=== PATIENT | male | born 1990 | race Two or more races ===

== ENCOUNTER 2023-06-28 11:08 | Emergency (ER) | payer MEDICAID, OTHER ==
[~2023-06-28] VITALS: Ht 177.8 cm; Wt 108.5 kg
[2023-06-28 12:30] VITALS: BP 134/91; PULSE 94; RESP 16; TEMP 97.7; O2SAT 98
[2023-06-28] MEDS ORDERED: CEPH500C PO (12:44)
[2023-06-28] MEDS ORDERED: IBUP-1456 PO (12:44)
== END 2023-06-28 12:53 | disposition home or self-care (01) ==
LOC: ER 11:08
DX: S92.424A Nondisplaced fracture of distal phalanx of right great toe, initial encounter for closed fracture (principal); S91.131A Puncture wound without foreign body of right great toe without damage to nail, initial encounter; W22.8XXA Striking against or struck by other objects, initial encounter; Y93.89 Activity, other specified; Y92.89 Other specified places as the place of occurrence of the external cause; Y99.8 Other external cause status
CPT/HCPCS: 73630

== ENCOUNTER 2024-01-12 12:57 | Inpatient (IN) | payer MEDICAID ==
[~2024-01-12 12:57] MED LIST: CEPH500C PO; IBUP-1456 PO
--- NOTE | 2024-01-12 13:08 | ED.PDOC ---
HPI Comments A 33 YEAR OLD MALE PRESENTS TO THE ED WITH COMPLAINT OF CHEST PAIN. PATIENT STATES HE HAS BEEN EXPERIENCING LEFT-SIDED CHEST PAIN THAT STARTED TODAY WHEN HE WOKE UP. PATIENT DESCRIBES HIS PAIN A TIGHTNESS SENSATION AND STATES HE WAS MILD HAND SHAKINESS. PATIENT NOTES HE WAS ALSO HAD MILD NAUSEA WITH HIS PAIN. PATIENT REPORTS HE HAD THIS SAME PAIN A FEW MONTHS AGO AND NOTES HE WAS ADMITTED AT A DIFFERENT HOSPITAL DUE TO HIS BLOOD SUGAR BEING TOO HIGH FEELS LIKE IT MAY BE A HIGH ONCE AGAIN. PATIENT DENIES FEVER, CHILLS, SHORTNESS OF BREATH, ABDOMINAL PAIN, VOMITING, HEADACHE, OR OTHER COMPLAINTS. NO OTHER SYMPTOMS OR MODIFYING FACTORS AT THIS TIME. PATIENT IS ALERT, ORIENTED X 4, AND HAS STEADY GAIT. Chief Complaint: Chest Pain Time Seen by MD: 13:01 Reviewed Notes: Nurses Notes, Medications, Allergies Allergies: Coded Allergies: NO KNOWN ALLERGIES (Unverified , 01/12/24) Home Meds Active Scripts Cephalexin Monohydrate (Cephalexin) 500 Mg Cap, 1 CAP PO TID, #30 CAP Prov:MOOKIE DAN 06/28/23 Ibuprofen (Ibuprofen) 800 Mg Tab, 1 TAB PO TID, #30 TAB Prov:MOOKIE DAN 06/28/23 Information Source: Patient Mode of Arrival: Ambulatory Severity: Moderate Timing: Hours Duration: Since onset, Hours Prehospital treatment: None Location: Chest (L) Radiation: No Radiation Quality: Tightness Onset: At Rest Cardiac Risk Factors: None PE Risk Factors: None History of: None Associated Signs and Symptoms: None Past Medical History PAST MEDICAL HISTORY: DM Surgical History: Denies all surgeries Family History Family History: Reviewed,noncontributory to illness Social History Smoker: Non-Smoker Alcohol: Denies ETOH Use Drugs: Denies Drug Use Lives In: Home Constitutional: reports: others (ANXIOUS ); denies: chills, diaphoresis, fatigue, fever, malaise, sweats, weakness EENTM: denies: blurred vision, double vision, ear bleeding, ear discharge, ear drainage, ear pain, ear ringing, eye pain, eye redness, hearing loss, mouth pain, mouth swelling, nasal discharge, nose bleeding, nose congestion, nose pain, photophobia, tearing, throat pain, throat swelling, voice changes, others Respiratory: denies: cough, hemoptysis, orthopnea, SOB at rest, shortness of breath, SOB with excertion, stridor, wheezing, others Cardiovascular: reports: chest pain (LEFT-SIDED CHEST PAIN); denies: dizzy spells, diaphoresis, Dyspnea on exertion, edema, irregular heart beat, left arm pain, lightheadedness, palpitations, PND, syncope, others Gastrointestinal: reports: nausea; denies: abdomen distended, abdominal pain, blood streaked bowels, constipated, diarrhea, dysphagia, difficulty swallowing, hematemesis, melena, poor appetite, poor fluid intake, rectal bleeding, rectal pain, vomiting, others Genitourinary: denies: burning, dysuria, flank pain, frequency, hematuria, incontinence, penile discharge, penile sore, pain, testicle pain, testicle swelling, urgency, others Neurological: reports: tingling; denies: dizziness, fainting, headache, left sided numbness, left sided weakness, numbness, paresthesia, pre-existing def icit, right sided numbness, right sided weakness, seizure, speech problems, tremors, weakness, others Musculoskeletal: denies: back pain, gout, joint pain, joint swelling, muscle pain, muscle stiffness, neck pain, others Integumetry: denies: bruises, change in color, change in hair/nails, dryness, laceration, lesions, lumps, rash, wounds, others Allergic/Immunocompromised: denies: Difficulty Healing, Frequent Infections, Hives, Itching, others Hematologic/Lymphatic: denies: anemia, blood clots, easy bleeding, easy bruising, swollen glands, others Endocrine: denies: excessive hunger, excessive sweating, excessive thirst, excessive urination, flushing, intolerance to cold, intolerance to heat, unexplained weight gain, unexplained weight loss, others Psychiatric: reports: anxiety; denies: bipolar disorder, depression, hopeless, panic disorder, schizophrenia, sleepless, suicidal, others All Other Systems: Reviewed and Negative Physical Exam General Appearance: No Apparent Distress, Normal HEENT: Normal ENT Inspection, PERRL/EOMI, Pharynx Normal, TMs Normal Neck: Full Range of Motion, Non-Tender, Normal, Normal Inspection Respiratory: Lungs Clear, No Accessory Muscle Use, No Respiratory Distress, Normal Breath Sounds, Other (TENDERNESS ON LEFT SIDE CHEST WALL ) Cardiovascular: No Edema, No JVD, No Murmur, No Gallop, Normal Peripheral Pulses, Regular Rate/Rhythm Breast Exam: Deferred Gastrointestinal: No Organomegaly, Non Tender, No Pulsatile Mass, Normal Bowel Sounds, Soft Genitalia: Deferred Pelvic: Deferred Rectal: Deferred Extremities: No calf tenderness, Normal capillary refill, Normal inspection, Normal range of motion, Non-tender, No pedal edema Musculoskeletal : Apperance: Normal Neurologic: Alert, sports equipment repairer II-XII nml as Tested, No Motor Deficits, Normal Affect, Normal Mood, No Sensory Deficits Cerebellar Function: Normal Reflexes: Normal Skin: Dry, Normal Color, Warm Peripheral Pulses: 2+ carotid (R), 2+ carotid (L) Lymphatic: No Adenopathy EKG EKG : Pulse Rate (adult): 96 Neptune: Normal Cardiac Rhythm: NSR Block: None Hypertrophy: None ST: Normal Was a procedure done? Was a procedure done?: No CP Differential Dx Differential Diagnosis: Angina, Anxiety / Panic Attack Differential Diagnosis: N/A Differential Diagnosis: Angina, Chest Wall Pain, Costochondritis, Esophageal reflux/spasm, Myocardial Infarction, Pericarditis X-Ray, Labs, Meds, VS Vital Signs Date Time Temp Pulse Resp B/P (MAP) Pulse Ox O2 Delivery O2 Flow Rate FiO2 01/12/24 13:39 95 18 98 Room Air* 0 21 01/12/24 13:39 98.2 96 18 132/81 (98) 98 98.2 01/12/24 13:05 97.4 100 20 129/90 (103) 99 01/12/24 13:03 96 Lab Test 01/12/24 14:32 01/12/24 14:19 01/12/24 13:11 01/12/24 13:10 Range/Units POC Glucose 302 H 385 H 429 *H 70-106 mg/dl Troponin I High Sensitivity Pending Test 01/12/24 13:08 Range/Units White Blood Count 7.7 4.4-10.8 10^3/uL Red Blood Count 5.65 4.5-5.90 10^6/uL Hemoglobin 17.1 13.5-17.5 g/dL Hematocrit 49.0 41.0-53.0 % Mean Corpuscular Volume 86.8 80.0-100.0 fL Mean Corpuscular Hemoglobin 30.3 28.0-32.0 pg Mean Corpuscular Hemoglobin Concent 34.9 32.0-36.0 g/dL Red Cell Distribution Width 12.7 11.8-14.3 % Platelet Count 201 140-450 10^3/uL Mean Platelet Volume 9.0 6.9-10.8 fL Neutrophils (%) (Auto) 79.9 37.0-80.0 % Lymphocytes (%) (Auto) 12.5 10.0-50.0 % Monocytes (%) (Auto) 5.1 0.0-12.0 % Eosinophils (%) (Auto) 2.4 0.0-7.0 % Basophils (%) (Auto) 0.1 0.0-2.0 % Neutrophils # (Auto) 6.1 1.6-8.6 10 ^3/uL Lymphocytes # (Auto) 1.0 0.4-5.4 10 ^3/uL Monocytes # (Auto) 0.4 0-1.3 10 ^3/uL Eosinophils # (Auto) 0.2 0-0.8 10 ^3/uL Basophils # (Auto) 0 0-0.2 10 ^3/uL Nucleated Red Blood Cells 0.0 % Sodium Level 134 L 136-145 mmol/L Potassium Level 4.2 3.5-5.1 mmol/L Chloride Level 99 98-107 mmol/L Carbon Dioxide Level 25 20-31 mmol/L Anion Gap 10 5-15 Blood Urea Nitrogen 15 9-23 mg/dL Creatinine 1.00 0.700-1.30 mg/dL Glomerular Filtration Rate Calc 101 >90 mL/min BUN/Creatinine Ratio 15.0 10.0-20.0 Serum Glucose 407 *H 74-106 mg/dL Calcium Level 9.7 8.7-10.4 mg/dL Troponin I High Sensitivity < 3 L </=54 ng/L Current Medications Medications (Trade) Dose Ordered Sig/Rj Route Start Time Stop Time Status Last Admin Insulin Human Regular (InsuLIN R) 6 units ONCE ONCE IV 01/12/24 13:45 01/12/24 13:50 DC 01/12/24 13:58 Sodium Chloride 1,000 ml @ 1,000 mls/hr Q1H ONCE IV 01/12/24 13:45 01/12/24 14:44 DC 01/12/24 13:54 PATIENT: [facility] [place]: [id number]: [id number] : 1990 LOC: ER ROOM / BED: / AGE / SEX: 33 / M ADM STATUS: REG ER SERVICE 1302 ORDERING PHYSICIAN: MOOKIE DAN PROCEDURE(s): CXRP - CHEST PORTABLE REASON: CHEST PAIN ORDER NUMBER(s): [id number], ACCESSION NUMBER(s): [id number] CHEST RADIOGRAPH Indication: CHEST PAIN Technique: Single frontal view of the chest was obtained Comparison: None FINDINGS: Lines and Tubes: None Lungs: No focal consolidation. Bronchovascular crowding due to low lung volumes. Pleura: No effusion. No pneumothorax. Cardiomediastinal contours: Unremarkable Bones: No acute osseous abnormality. IMPRESSION: Bronchovascular crowding due to low lung volumes. Mild pulmonary vascular congestion can not be excluded. ATED BY: RASHMI MCINTOSH DO DICTATED DATE/TIME: 01/12/24 140 SIGNED BY: RASHMI MCINTOSH DO SIGNED DATE/TIME: 01/12/24 140 CC: X-Ray, Labs, Meds, VS Comment EXTERNAL NOTES: NONE LABS ORDERED: CBC, CMP, TROPONIN X2, UA REVIEWED AND INTERPRETED RESULTS: PENDING IMAGING ORDERED: XR CHEST: [PENDING] INDEPENDENT HISTORIANS: NONE PATIENT'S CASE WILL BE SIGNED OUT TO DR. MONTANO DUE TO A NEED FOR A HIGHER LEVEL OF CARE. Time of 1ST Reevaluation: 14:00 Reevaluation 1ST: Unchanged Time of 2ND Reevaluation: 14:44 Reevaluation 2ND: Unchanged Patient Education/Counseling: Diagnosis, Treatment, Prognosis Family Education/Counseling: Diagnosis, Treatment Assigned to Dr. MONTANO Change of Shift?: No Additional Information DUE TO A NEED FOR A HIGHER LEVEL OF CARE. i assumed care of this pt at 1pm. i reviewed and examined the pt and agree with the note from GRIFFIN Dan. pt reports that he takes metformin, but has not been able to take it since he has abdominal pain when he tries to eat. he does take motrin on a regular basis, but denies hematemesis. pt may have PUD from NSAID use, or gastroparesis, causing him to be intolerant to oral intake. as a result, he was unable to take him medications. pt's BS is now uncontrolled. he is not in DKA, but is likely to deteriorate without medications or oral intake. pt will be admitted for uncontrolled diabetes due to oral intake intolerance, and dyspepsia i reviewed pt's labs( cbc, chem, trop), and communicated with medical personnel and consults about his care pt also reported chest pain which will be worked up Departure 1 Departure Time of Disposition: 14:00 Impression: Primary Impression: Acute chest pain Additional Impressions: Uncontrolled diabetes mellitus Qualified Codes: E11.65 - Type 2 diabetes mellitus with hyperglycemia Dyspepsia Food intolerance in adult Anorexia Disposition: ADMITTED INPATIENT Admit to: Tele Condition: Stable Critical Care Note Critical Care Time?: Yes (55 min-critical care time only) Critical care comment: due to the likelihood of patients condition suddenly deteriorating, the care requires my highest level of attention, readiness to intervene. my critical care include assessing and reassessing of patient's condition, response to treatments, ordering the appropriate tests, reviewing the results, ordering of treatments, discussing the care with medical personnel and consultants, and formulating a treatment plan, as well a reviewing various medical records. this include at least 50% face-face interaction, and does not include any procedures Stability Stability form required: No Heart Score Heart Score: Heart Score Response (Comments) Value History Slightly Suspicious 0 EKG Normal 0 Age <45 0 Risk Factors 1 or 2 risk factors 1 Troponin Normal limit 0 Total 1 I personally scribed for MOOKIE DAN ([email or web address]) on 01/12/24 at 14:02. Electronically submitted by Manjit Spann ([email or web address]). MOOKIE DAN Jan 12, 2024 13:08 ROLF MONTANO MD Jan 12, 2024 14:52
[2024-01-12 13:39] VITALS: PULSE 95; RESP 18; O2SAT 98
[2024-01-12] MEDS: SODIUM CHLORIDE 0.9% 1,000 ML IV ONE (13:54)
[2024-01-12 13:56] LABS: Basophils # (auto) 0 10 ^3/uL (0-0.2); Basophils % (auto) 0.1 % (0.0-2.0); Eosinophils # (auto) 0.2 10 ^3/uL (0-0.8); Eosinophils % (auto) 2.4 % (0.0-7.0); Hemoglobin 17.1 g/dL (13.5-17.5); Lymphocytes % (auto) 12.5 % (10.0-50.0); Mean Corpuscular Hemoglobin 30.3 pg (28.0-32.0); Mean Corpuscular Hgb Conc. 34.9 g/dL (32.0-36.0); Mean Corpuscular Volume 86.8 fL (80.0-100.0); Monocytes # (auto) 0.4 10 ^3/uL (0-1.3); Monocytes % (auto) 5.1 % (0.0-12.0); Neutrophils # (auto) 6.1 10 ^3/uL (1.6-8.6); Neutrophils % (auto) 79.9 % (37.0-80.0); Platelet Count (auto) 201 10^3/uL (140-450); Red Blood Cells 5.65 10^6/uL (4.5-5.90); Red Cell Distribution Width 12.7 % (11.8-14.3); White Blood Cell 7.7 10^3/uL (4.4-10.8)
[2024-01-12] MEDS: InsuLIN REG 1unit/0.01ml Soln (100units/ml) IV ONE (13:58)
[2024-01-12 14:00] LABS: Anion Gap 10 (5-15); Carbon Dioxide 25 mmol/L (20-31); Chloride 99 mmol/L (98-107); Potassium 4.2 mmol/L (3.5-5.1)
[2024-01-12 14:01] LABS: Calcium 9.7 mg/dL (8.7-10.4); Sodium 134 mmol/L (136-145)
[2024-01-12 14:07] LABS: Blood Urea Nitrogen 15 mg/dL (9-23)
[2024-01-12 14:10] LABS: Glucose 407 mg/dL (74-106)
--- NOTE | 2024-01-12 14:12 | DVH ---
CHEST RADIOGRAPH Indication: CHEST PAIN Technique: Single frontal view of the chest was obtained Comparison: None FINDINGS: Lines and Tubes: None Lungs: No focal consolidation. Bronchovascular crowding due to low lung volumes. Pleura: No effusion. No pneumothorax. Cardiomediastinal contours: Unremarkable Bones: No acute osseous abnormality. IMPRESSION: Bronchovascular crowding due to low lung volumes. Mild pulmonary vascular congestion can not be excl uded.
[2024-01-12 15:18] LABS: Urine Bacteria FEW /hpf (None Seen); Urine Blood Negative /uL (Negative); Urine Clarity Turbid (Clear); Urine Color Light-Yellow (Yellow); Urine Hyaline Cast FEW /lpf (0 - 2); Urine Mucus FEW (None Seen); Urine Protein, UAD Negative (Negative); Urine Specific Gravity 1.048 (1.001-1.035); Urine Urobilinogen Normal (Negative); Urine WBC 1 /hpf (0 - 3)
[2024-01-12] MEDS: SODIUM CHLORIDE 0.9% 1,000 ML IV SCH (15:30)
[2024-01-12] MEDS ORDERED: LORazepam 0.5 MG TAB PO PRN (15:30)
[2024-01-12] MEDS ORDERED: DEXTROSE (50%) 50ML SYRG IV PRN (15:30)
[2024-01-12] MEDS ORDERED: MAALOX PLUS or MAALOX 30 ML PO PRN (15:30)
[2024-01-12] MEDS ORDERED: MORPHINE SULFATE INJ 2 MG/ml SYRG IV PRN (15:30)
[2024-01-12] MEDS ORDERED: ZOLPIDEM TARTRATE 5 MG TAB PO PRN (15:30)
[2024-01-12] MEDS ORDERED: NITROGLYCERIN 0.4 MG SL TAB SL PRN (15:30)
[2024-01-12] MEDS ORDERED: ONDANSETRON HCL 4 MG/2 ML VIAL IV PRN (15:30)
[2024-01-12] MEDS ORDERED: ACETAMINOPHEN 325 MG TAB PO PRN (15:30)
--- NOTE | 2024-01-12 15:38 | DVHHP2 ---
History of Present Illness Reason for Visit: chest pain History of Present Illness 33-year-old morbidly obese patient with a past medical history of diabetes comes into the ED for evaluation of stated chest pain that was severe enough to wake the patient from his sleep patient describes having symptoms of jitteriness weakness shakiness tightness sensation patient was also noted to have severe hyperglycemia and states that he has had symptoms similar to this in the past and was admitted to a different hospital in that that point in time it was due to his blood sugar being severely high patient is diabetic possibly noncompliant to medications that this point in time is also hyperglycemic patient was recomm ended from the ED for further evaluation and management Endocrine: Diabetes Review of Systems Constitutional: Yes: Weakness; No: Fever, Chills, Sweats, Malaise, Other Eyes: No: Pain, Vision change, Conjunctivae inflammation, Eyelid inflammation, Other, Redness ENT: No: Ear pain, Ear discharge, Nose pain, Nose discharge, Nose congestion, Mouth pain, Mouth swelling, Throat pain, Throat swelling, Other Respiratory: No: Cough, Dry, Shortness of breath, SOB with excertion, Wheezing, Hemoptysis, Pleuritic Pain, Sputum, Wheezing, Other Cardiovascular: No: Chest Pain, Palpitations, Orthopnea, Paroxysmal Noc. Dyspnea, Edema, Lt Headedness, Other Gastrointestinal: No: Nausea, Vomiting, Abdominal Pain, Diarrhea, Constipation, Melena, Hematochezia, Other Genitourinary: Dysuria, Frequency; No Incontinence, No Hematuria, No Retention, No Other Musculoskeletal: No: other, neck pain, shoulder pain, arm pain, back pain, hand pain, leg pain, foot pain Skin: No: Rash, Lesions, Jaundice, Bruising, Other Neurological: Weakness; No: Numbness, Incoordination, Change in speech, Confusion, Seizures, Other Allergies: Coded Allergies: NO KNOWN ALLERGIES (Unverified , 01/12/24) Exam Vital Signs Vital Signs Date Time Temp Pulse Resp B/P (MAP) Pulse Ox O2 Delivery O2 Flow Rate FiO2 01/12/24 13:39 95 18 98 Room Air* 0 21 01/12/24 13:39 98.2 132/81 (98) 98.2 General Appearance: Alert, Oriented X3, mild distress HEENT: Atraumatic, PERRLA Respiratory: Clear to auscultation, Normal air movement Cardiovascular: Regular rate, Normal S1, Normal S2 Abdominal: Normal bowel sounds, Soft, No tenderness Extremities: No clubbing, No cyanosis Skin: No rashes, No breakdown Neuro: Normal gait, Normal speech Psych/Mental Status: Mood NL Labs/Xrays Labs Test 01/12/24 14:59 01/12/24 14:32 01/12/24 14:19 01/12/24 13:08 Range/Units Urine Color Light-yellow Yellow Urine Clarity Turbid H Clear Urine pH 5.0 5.0-9.0 Urine Specific [place] 1.048 H 1.001-1.035 Urine Protein Negative Negative Urine Ketones Trace Negative Urine Blood Negative Negative /uL Urine Nitrite Negative Negative Urine Bilirubin Negative Negative Urine Urobilinogen Normal Negative mg/dL Urine Leukocyte Esterase Negative Negative /uL Urine RBC <1 0 - 3 /hpf Urine WBC 1 0 - 3 /hpf Urine Squamous Epithelial Cells Few <5 /hpf Urine Bacteria Few H None Seen /hpf Urine Hyaline Casts Few 0 - 2 /lpf Urine Mucus Few None Seen Urine Glucose 4+ H Normal mg/dL POC Glucose 302 H 70-106 mg/dl Troponin I High Sensitivity < 3 L </=54 ng/L White Blood Count 7.7 4.4-10.8 10^3/uL Red Blood Count 5.65 4.5-5.90 10^6/uL Hemoglobin 17.1 13.5-17.5 g/dL Hematocrit 49.0 41.0-53.0 % Mean Corpuscular Volume 86.8 80.0-100.0 fL Mean Corpuscular Hemoglobin 30.3 28.0-32.0 pg Mean Corpuscular Hemoglobin Concent 34.9 32.0-36.0 g/dL Red Cell Distribution Width 12.7 11.8-14.3 % Platelet Count 201 140-450 10^3/uL Mean Platelet Volume 9.0 6.9-10.8 fL Neutrophils (%) (Auto) 79.9 37.0-80.0 % Lymphocytes (%) (Auto) 12.5 10.0-50.0 % Monocytes (%) (Auto) 5.1 0.0-12.0 % Eosinophils (%) (Auto) 2.4 0.0-7.0 % Basophils (%) (Auto) 0.1 0.0-2.0 % Neutrophils # (Auto) 6.1 1.6-8.6 10 ^3/uL Lymphocytes # (Auto) 1.0 0.4-5.4 10 ^3/uL Monocytes # (Auto) 0.4 0-1.3 10 ^3/uL Eosinophils # (Auto) 0.2 0-0.8 10 ^3/uL Basophils # (Auto) 0 0-0.2 10 ^3/uL Nucleated Red Blood Cells 0.0 % Sodium Level 134 L 136-145 mmol/L Potassium Level 4.2 3.5-5.1 mmol/L Chloride Level 99 98-107 mmol/L Carbon Dioxide Level 25 20-31 mmol/L Anion Gap 10 5-15 Blood Urea Nitrogen 15 9-23 mg/dL Creatinine 1.00 0.700-1.30 mg/dL Glomerular Filtration Rate Calc 101 >90 mL/min BUN/Creatinine Ratio 15.0 10.0-20.0 Serum Glucose 407 *H 74-106 mg/dL Calcium Level 9.7 8.7-10.4 mg/dL Assessment/Plan Assessment/Plan Admit to [facility] Chest pain rule out ACS Chest pain protocol IV hydration Continue with the management of chest pain protocol Uncontrolled diabetes with severe hyperglycemia Glucose greater than 400 Insulin sliding scale aggressive Insulin required due now Possible signs of pulmonary congestion also noted on patient's chest x-ray UTI IV hydration IV antibiotics ceftriaxone daily Plan discussed with: Patient My Orders Orders - NORRIS HOUSER MD Procedure Category Date Status Time Insulin 70/30 (Human) PHA 01/12/24 Verified (Humulin 70/30) 22:00 Insulin Lispro PHA 01/12/24 Verified (Human) (Humalog) 15:30 Glucose Blood PHA 01/12/24 Verified (Accu-Chek Comfort 16:00 Agressive Insulin Ss PHA 01/12/24 Verified 16:00 Dextrose 50% Syringe PHA 01/12/24 Verified 15:30 Admit ADMIT 01/12/24 Verified 15:29 Code Status CODE 01/12/24 Verified 15:29 Cardiac DIET 01/12/24 Verified Diet-2gna,Lofat,Lochol Dinner 0.9%Ns 1000 Ml PHA 01/12/24 Verified 15:30 Aspirin Tablet PHA 01/13/24 Verified 10:00 Clopidogrel Bisulfate PHA 01/13/24 Verified (Plavix) 10:00 Lipitor 40mg Hs PHA 01/12/24 Verified Hi-Intensity 22:00 Metoprolol Tartrate PHA 01/12/24 Verified Tablet (Lopressor Ta 22:00 Acetaminophen Tablet PHA 01/12/24 Verified (Tylenol Tablet) 15:30 Zolpidem Tartrate PHA 01/12/24 Verified (Ambien) 15:30 Lorazepam Tablet PHA 01/12/24 Verified (Ativan Tablet) 15:30 Docusate Sodium PHA 01/13/24 Verified Capsule (Colace 10:00 Complete Blood Count LAB 01/13/24 Verified 04:00 Basic Metabolic Panel LAB 01/13/24 Verified 04:00 Ondansetron Hcl PHA 01/12/24 Verified (Zofran) 15:30 Electrocardigram EKG 01/12/24 Verified 15:29 Alum & Mag PHA 01/12/24 Verified Hydrox-Simethicone 15:30 Troponin-I Hs LAB 01/12/24 Verified 15:29 Lisinopril Tablet PHA 01/13/24 Verified (Zestril Tablet) 10:00 Cardiac MARIELA 01/12/24 Verified Rehabilitation - Outpa Stat Ekg For Chest MARIELA 01/12/24 Verified Pain 15:29 Notify Md Of Changes MARIELA 01/12/24 Verified From Base 15:29 Rhythm Strips Once MARIELA 01/12/24 Verified Every Shift 15:29 Oxygen By Nasal RT 01/12/24 Verified Cannula 15:29 Nitroglycerin PHA 01/12/24 Verified Sublingual (Ntrostat 15:30 Morphine Sulfate PHA 01/12/24 Verified Injection 15:30 Emergency Dysrhythmia MARIELA 01/12/24 Verified Protocol 15:29 Ceftriaxone Ivpb PHA 01/13/24 Verified Rocephin 10:00 Problem List: (1) Acute chest pain (2) Uncontrolled diabetes mellitus (3) Anorexia (4) Food intolerance in adult Date of Service: Jan 12, 2024 Billing Provider: NORRIS HOUSER MD Common Visit Codes: [id number] INP/OBS CARE (HIGH) NORRIS HOUSER MD Jan 12, 2024 15:38
[2024-01-12] MEDS: cefTRIAXone 1GM/50ML D5W 50 ML IV SCH (17:04)
[2024-01-12] MEDS: InsuLIN REG 1unit/0.01ml Soln (100units/ml) SC SCH (17:45)
[2024-01-12] MEDS: ACCU-CHEK COMFORT CURVE STRIP VI SCH (17:46)
[2024-01-12] MEDS: INSULIN LISPRO (HUMAN) 100 UNITS/ML ML SC ONE (17:47)
[2024-01-12 18:34] VITALS: BP 111/73; PULSE 88; RESP 17; TEMP 98.7; O2SAT 95
[2024-01-12 20:00] VITALS: PULSE 90; RESP 18; O2SAT 95
[2024-01-12] MEDS: METOPROLOL TARTRATE 25 MG TAB PO SCH (22:00)
[2024-01-12] MEDS: ATORVASTATIN 20 MG TAB PO SCH (22:10)
[2024-01-12] MEDS: INSULIN 70/30 1unit/0.01ml Susp (100units/ml) SC SCH (23:00)
[2024-01-13 00:20] VITALS: BP 114/75; PULSE 87; RESP 18; TEMP 97.3; O2SAT 95
[2024-01-13 05:50] VITALS: BP 106/68; PULSE 71; RESP 18; TEMP 98; O2SAT 96
[2024-01-13 07:37] VITALS: RESP 18
[2024-01-13 07:37] LABS: Basophils # (auto) 0 10 ^3/uL (0-0.2); Basophils % (auto) 0.4 % (0.0-2.0); Eosinophils # (auto) 0.1 10 ^3/uL (0-0.8); Eosinophils % (auto) 2.7 % (0.0-7.0); Hematocrit 44.7 % (41.0-53.0); Hemoglobin 15.8 g/dL (13.5-17.5); Lymphocytes # (auto) 1.4 10 ^3/uL (0.4-5.4); Lymphocytes % (auto) 27.5 % (10.0-50.0); Mean Corpuscular Hemoglobin 30.5 pg (28.0-32.0); Mean Corpuscular Hgb Conc. 35.4 g/dL (32.0-36.0); Mean Corpuscular Volume 86.1 fL (80.0-100.0); Monocytes # (auto) 0.5 10 ^3/uL (0-1.3); Neutrophils # (auto) 3.2 10 ^3/uL (1.6-8.6); Neutrophils % (auto) 60.4 % (37.0-80.0); Nucleated Red Blood Cells % 0.1 %; Platelet Count (auto) 181 10^3/uL (140-450); Red Blood Cells 5.19 10^6/uL (4.5-5.90); White Blood Cell 5.2 10^3/uL (4.4-10.8)
[2024-01-13 07:48] LABS: Anion Gap 8 (5-15); Carbon Dioxide 24 mmol/L (20-31); Chloride 106 mmol/L (98-107); Sodium 138 mmol/L (136-145)
[2024-01-13 07:49] LABS: Calcium 8.9 mg/dL (8.7-10.4)
[2024-01-13 07:54] LABS: BUN/Creatinine Ratio 14.3 (10.0-20.0)
[2024-01-13 07:58] LABS: Potassium 3.5 mmol/L (3.5-5.1)
[2024-01-13 07:59] LABS: Blood Urea Nitrogen 8 mg/dL (9-23); Glucose 122 mg/dL (74-106)
[2024-01-13] MEDS: CLOPIDOGREL BISULFATE 75 MG TAB PO SCH (10:27)
[2024-01-13] MEDS: DOCUSATE SOD 100 MG CAP PO SCH (10:27)
[2024-01-13] MEDS: ASPirin 81 mg TAB PO SCH (10:28)
[2024-01-13] MEDS: LISINOPRIL 5 MG TAB PO SCH (10:37)
--- NOTE | 2024-01-13 15:31 | DVHPN2 ---
Subjective No more chest pains. No urine complaints. No nausea no vomiting no diarrhea. Reviewed: Care Plan, H&P, Labs, Medications, Previous Orders, Radiology, Other Changes from previous H/P or p: No Changes Objective Vitals Vital Signs Date Time Temp Pulse Resp B/P (MAP) Pulse Ox O2 Delivery O2 Flow Rate FiO2 01/13/24 11:30 74 101/63 01/13/24 07:37 18 Room Air* 0 21 01/13/24 05:50 98.0 96 98.0 General Appearance: Alert, Oriented X3, Cooperative, No acute distress HEENT: Atraumatic, PERRLA Lungs: Clear to auscultation Cardiovascular: Regular rate, Normal S1, Normal S2 Abdomen: Normal bowel sounds, Soft, No tenderness Extremities: No edema Medications Current Medications Medications Dose Ordered Sig/Rj Route Start Time Stop Time Status Last Admin Dose Admin Insulin Human Isoph/Insulin Regular 30 units BID SC 01/12/24 22:00 01/13/24 10:43 30 UNITS Diagnostic Test (Pha) 1 strip IQ4HR 01/12/24 16:00 01/13/24 12:12 1 STRIP Insulin Human Regular IQ4HR SC 01/12/24 16:00 01/13/24 12:15 4 UNITS Dextrose 50 ml UD PRN IV 01/12/24 15:30 Sodium Chloride 1,000 ml @ 200 mls/hr Q5H IV 01/12/24 15:30 01/13/24 12:09 200 MLS/HR Aspirin 81 mg DAILY PO 01/13/24 10:00 01/13/24 10:28 81 MG Atorvastatin Calcium 40 mg HS PO 01/12/24 22:00 01/12/24 22:10 40 MG Metoprolol Tartrate 12.5 mg Q12HR PO 01/12/24 22:00 01/13/24 10:36 12.5 MG Acetaminophen 650 mg Q6HP PRN PO 01/12/24 15:30 Zolpidem Tartrate 5 mg QHSP PRN PO 01/12/24 15:30 Lorazepam 0.5 mg Q6HP PRN PO 01/12/24 15:30 Docusate Sodium 100 mg DAILY PO 01/13/24 10:00 01/13/24 10:27 100 MG Ondansetron HCl 4 mg Q4HP PRN IV 01/12/24 15:30 Al Hydrox/Mg Hydrox/Simethicone 30 ml Q6HPRN PRN PO 01/12/24 15:30 Lisinopril 10 mg DAILY PO 01/13/24 10:00 01/13/24 10:37 10 MG Nitroglycerin 0.4 mg Q5MINP PRN SL 01/12/24 15:30 Morphine Sulfate 2 mg Q30M PRN IV 01/12/24 15:30 Ceftriaxone Sodium 50 ml @ 100 mls/hr DAILY IV 01/12/24 17:04 01/13/24 11:22 100 MLS/HR Laboratory Results Laboratory Tests 01/13/24 07:18 Chemistry Test 01/13/24 07:18 Calcium Level 8.9 mg/dL (8.7-10.4) Urinalysis Test 01/12/24 14:59 Urine Color Light-yellow (Yellow) Urine Clarity Turbid (Clear) H Urine pH 5.0 (5.0-9.0) Urine Specific [place] 1.048 (1.001-1.035) Urine Protein Negative (Negative) Urine Ketones Trace (Negative) Urine Blood Negative /uL (Negative) Urine Nitrite Negative (Negative) Urine Bilirubin Negative (Negative) Urine Urobilinogen Normal mg/dL (Negative) Urine Leukocyte Esterase Negative /uL (Negative) Urine RBC <1 /hpf (0 - 3) Urine WBC 1 /hpf (0 - 3) Urine Squamous Epithelial Cells Few /hpf (<5) Urine Bacteria Few /hpf (None Seen) H Urine Hyaline Casts Few /lpf (0 - 2) Urine Mucus Few (None Seen) Urine Glucose 4+ mg/dL (Normal) H Assessment/Plan Assessment/Plan Chest pain/pressure-like/of unclear etiology Hyperglycemia/uncontrolled diabetes Questionable UTI Obesity Plan: Check D-dimer. Cardiology consultation. A1c. Drug screen. Further plan per orders Plan discussed with: Patient My Orders Orders - QUANG YI MD Procedure Category Date Status Time D-Dimer LAB 01/13/24 Logged 15:17 Drug Screen LAB 01/13/24 Logged 15:17 * Cardiology Consult CONS 01/13/24 Transmitted 15:17 Hemoglobin A1c LAB 01/13/24 Logged 15:17 Date of Service: Jan 13, 2024 Billing Provider: QUANG YI MD Common Visit Codes: [id number] INP/OBS CARE(HIGH) QUANG YI MD Jan 13, 2024 15:31
--- NOTE | 2024-01-13 17:09 | DVHINCON2 ---
Date Seen: Jan 13, 2024 Referring Physician MD Yvrose Reason for Consultation Chest pain History of Present Illness This is a 33-year-old man who presented to the emergency room with a chief complaint of chest pain since 0500 the day of admission. Describes his chest pain as left-sided, nonradiating, non provoked, and pressure-like. Denies shortness of breath, palpitations, dizziness, diaphoresis, or syncopal events. 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 The patient also reports contact to the chest wall area by his daughter's feet when playing and who is 2 y.o. He underwent a 12 lead electrocardiogram revealing a sinus rhythm. Serial troponin levels are negative. Significant medical history includes [id number] diabetes mellitus, cataracts status post left cataract surgery, and obesity. Past Medical History Past medical history reviewed. No other significant than mentioned above. Past Surgical History Left cataract surgery Family History Family history reviewed. Not significant for cardiovascular disease. Social History Denies the use of illicit drugs or tobacco use. Admits to occasional alcohol use. Allergies: Coded Allergies: NO KNOWN ALLERGIES (Unverified , 01/12/24) Home Meds Active Scripts Cephalexin Monohydrate (Cephalexin) 500 Mg Cap, 1 CAP PO TID, #30 CAP Prov:MOOKIE DAN 06/28/23 Ibuprofen (Ibuprofen) 800 Mg Tab, 1 TAB PO TID, #30 TAB Prov:MOOKIE DAN 06/28/23 Home Meds Home medications reviewed. Current Medications Current Medications Medications (Trade) Dose Ordered Sig/Rj Route PRN Reason Start Time Stop Time Status Last Admin Insulin Human Isoph/Insulin Regular (HumuLIN 70/30) 30 units BID SC 01/12/24 22:00 01/13/24 10:43 Aspirin 81 mg DAILY PO 01/13/24 10:00 01/13/24 10:28 Clopidogrel Bisulfate (Plavix) 75 mg DAILY PO 01/13/24 10:00 01/13/24 15:19 DC 01/13/24 10:27 Atorvastatin Calcium (Lipitor) 40 mg HS PO 01/12/24 22:00 01/12/24 22:10 Metoprolol Tartrate (Lopressor Tablet) 12.5 mg Q12HR PO 01/12/24 22:00 01/13/24 10:36 Docusate Sodium (Colace Capsule) 100 mg DAILY PO 01/13/24 10:00 01/13/24 10:27 Lisinopril (Zestril Tablet) 10 mg DAILY PO 01/13/24 10:00 01/13/24 10:37 Ceftriaxone Sodium 50 ml @ 100 mls/hr DAILY IV 01/12/24 17:04 01/13/24 11:22 Review of Systems Constitutional: No symptom reported Ears, Nose, & Throat: No symptom reported Eyes: No symptom reported Neurological: No symptoms reported Pulmonary/Respiratory: No symptom reported Cardiovascular: Chest pain Gastrointestinal: No symptom reported Genitourinary: No symptom reported Musculoskeletal: No symptom reported Skin: No symptom reported Psychiatric: No symptom reported Endocrine: No symptom reported Hemotologic/Lymphatic: No symptom reported Vital Signs Vital Signs Date Time Temp Pulse Resp B/P (MAP) Pulse Ox O2 Delivery O2 Flow Rate FiO2 01/13/24 11:30 74 101/63 01/13/24 07:37 18 Room Air* 0 21 01/13/24 05:50 98.0 96 98.0 Physical Exam General Appearance: Cooperative. Well developed. Obese. In no acute distress Head Exam: Normal inspection Neck Exam: Normal inspection. Non-tender. Normal alignment Pulmonary/Respiratory: Chest non-tender. Clear bilateral breath sounds Cardiovascular/Chest: Regular rate and rhythm. S1, S2. Sinus rhythm. No murmurs. No JVD. Peripheral Pulses: 2+ Radial (R). 2+ Radial (L). 2+ Pedal (R). 2+ Pedal (L) Abdominal Exam: Normal bowel sounds. Soft. Nontender. No hepatospenomegaly. No masses Ankle Exam: Negative ankle edema Lower extremities: Negative lower extremity edema Neuro/Mental Status: A&O x4. Coherent Thoughts/Psych: Normal thought pattern. Appropriate mood and affect. Good judgement and insight Appearance: In no acute distress Skin Exam: Normal inspection. Normal color. Warm. Dry Labs/Diagnostic Data Labs Test 01/13/24 12:11 01/13/24 07:18 01/12/24 14:59 01/12/24 14:19 Range/Units POC Glucose 191 H 70-106 mg/dl White Blood Count 5.2 # 4.4-10.8 10^3/uL Red Blood Count 5.19 4.5-5.90 10^6/uL Hemoglobin 15.8 13.5-17.5 g/dL Hematocrit 44.7 41.0-53.0 % Mean Corpuscular Volume 86.1 80.0-100.0 fL Mean Corpuscular Hemoglobin 30.5 28.0-32.0 pg Mean Corpuscular Hemoglobin Concent 35.4 32.0-36.0 g/dL Red Cell Distribution Width 13.0 11.8-14.3 % Platelet Count 181 140-450 10^3/uL Mean Platelet Volume 8.3 6.9-10.8 fL Neutrophils (%) (Auto) 60.4 37.0-80.0 % Lymphocytes (%) (Auto) 27.5 10.0-50.0 % Monocytes (%) (Auto) 9.0 0.0-12.0 % Eosinophils (%) (Auto) 2.7 0.0-7.0 % Basophils (%) (Auto) 0.4 0.0-2.0 % Neutrophils # (Auto) 3.2 1.6-8.6 10 ^3/uL Lymphocytes # (Auto) 1.4 0.4-5.4 10 ^3/uL Monocytes # (Auto) 0.5 0-1.3 10 ^3/uL Eosinophils # (Auto) 0.1 0-0.8 10 ^3/uL Basophils # (Auto) 0 0-0.2 10 ^3/uL Nucleated Red Blood Cells 0.1 % Sodium Level 138 136-145 mmol/L Potassium Level 3.5 3.5-5.1 mmol/L Chloride Level 106 98-107 mmol/L Carbon Dioxide Level 24 20-31 mmol/L Anion Gap 8 5-15 Blood Urea Nitrogen 8 L 9-23 mg/dL Creatinine 0.56 L 0.700-1.30 mg/dL Glomerular Filtration Rate Calc 133 >90 mL/min BUN/Creatinine Ratio 14.3 10.0-20.0 Serum Glucose 122 #H 74-106 mg/dL Hemoglobin A1c 9.5 H <5.7 % A1C Calcium Level 8.9 8.7-10.4 mg/dL Urine Color Light-yellow Yellow Urine Clarity Turbid H Clear Urine pH 5.0 5.0-9.0 Urine Specific [place] 1.048 H 1.001-1.035 Urine Protein Negative Negative Urine Ketones Trace Negative Urine Blood Negative Negative /uL Urine Nitrite Negative Negative Urine Bilirubin Negative Negative Urine Urobilinogen Normal Negative mg/dL Urine Leukocyte Esterase Negative Negative /uL Urine RBC <1 0 - 3 /hpf Urine WBC 1 0 - 3 /hpf Urine Squamous Epithelial Cells Few <5 /hpf Urine Bacteria Few H None Seen /hpf Urine Hyaline Casts Few 0 - 2 /lpf Urine Mucus Few None Seen Urine Glucose 4+ H Normal mg/dL Troponin I High Sensitivity < 3 L </=54 ng/L Assessment Likely noncardiac chest pain Rule out structural heart disease [id number] diabetes mellitus, uncontrolled, HgbA1C 9.5% Suboptimal medical therapy, stopped metformin 2 weeks ago Obesity Plan/Recommendation (Dr. Baron) The patient presents with likely noncardiac chest pain and a Heart Score of 2 points placing him at a low-risk for major cardiac events. Continue further cardiac evaluation with a transthoracic echocardiogram to rule out structural heart disease. Consider an outpatient stress test if deemed to be necessary. The patient reports he stopped his metformin therapy two weeks ago secondary to diarrhea. Continue tight glycemic control. Counseled on diet and exercise. In the setting of an unremarkable echocardiogram, there is no further cardiac workup indicated at this time. Thank you for allowing us to participate in this patient's care. Please call if you have any questions or concerns. This medical document was created using an electronic medical record system with voice recognition software and computerized dictation system. Although this document has been carefully reviewed, there might still be some phonetic and typographical errors. Occasional wrong-word or ``sound-alike substitutions may have occurred due to the inherent limitations of voice recognition software. These areas are purely typographical due to imperfections of the software programs and do not reflect any compromise in the patient's medical care. Please read the chart carefully and recognize, using context, where these substitutions have occurred. Plan discussed with: Patient, Other Date of Service: Jan 13, 2024 Billing Provider: VALARIE CRUZ Cardiology Common Codes: [id number] INP/OBS CARE (High) VALARIE CRUZ Jan 13, 2024 17:09
[2024-01-13 17:35] LABS: Magnesium 1.9 mg/dL (1.6-2.6)
[2024-01-14 01:00] VITALS: BP 98/64; PULSE 75; RESP 18; TEMP 97.9; O2SAT 95
[2024-01-14 04:00] VITALS: BP 93/64; PULSE 81; RESP 20; TEMP 97.5; O2SAT 97
[2024-01-14 06:19] VITALS: PULSE 72; RESP 15; O2SAT 94
[2024-01-14 09:47] VITALS: BP 107/65; PULSE 76; TEMP 98.8; O2SAT 97
[2024-01-14] MEDS ORDERED: EMPA1TAB3 PO (11:06)
[2024-01-14] MEDS ORDERED: ATOR40TA52 PO (11:06)
[2024-01-14] MEDS ORDERED: METF750T54 PO (11:09)
--- NOTE | 2024-01-14 11:14 | DVHDS2 ---
Discharge Summary Date of Admission Jan 12, 2024 at 15:29 Date of Discharge: Jan 14, 2024 Labs/Diagnostic Data: Laboratory Results Test 01/14/24 09:24 01/13/24 16:58 01/13/24 07:18 01/12/24 14:59 D-Dimer, Quantitative 0.45 mg/L FEU (0.0-0.49) White Blood Count 5.2 10^3/uL (4.4-10.8) Red Blood Count 5.19 10^6/uL (4.5-5.90) Hemoglobin 15.8 g/dL (13.5-17.5) Hematocrit 44.7 % (41.0-53.0) Mean Corpuscular Volume 86.1 fL (80.0-100.0) Mean Corpuscular Hemoglobin 30.5 pg (28.0-32.0) Mean Corpuscular Hemoglobin Concent 35.4 g/dL (32.0-36.0) Red Cell Distribution Width 13.0 % (11.8-14.3) Platelet Count 181 10^3/uL (140-450) Mean Platelet Volume 8.3 fL (6.9-10.8) Neutrophils (%) (Auto) 60.4 % (37.0-80.0) Lymphocytes (%) (Auto) 27.5 % (10.0-50.0) Monocytes (%) (Auto) 9.0 % (0.0-12.0) Eosinophils (%) (Auto) 2.7 % (0.0-7.0) Basophils (%) (Auto) 0.4 % (0.0-2.0) Neutrophils # (Auto) 3.2 10 ^3/uL (1.6-8.6) Lymphocytes # (Auto) 1.4 10 ^3/uL (0.4-5.4) Monocytes # (Auto) 0.5 10 ^3/uL (0-1.3) Eosinophils # (Auto) 0.1 10 ^3/uL (0-0.8) Basophils # (Auto) 0 10 ^3/uL (0-0.2) Nucleated Red Blood Cells 0.1 % Sodium Level 138 mmol/L (136-145) Potassium Level 3.5 mmol/L (3.5-5.1) Chloride Level 106 mmol/L (98-107) Carbon Dioxide Level 24 mmol/L (20-31) Anion Gap 8 (5-15) Blood Urea Nitrogen 8 mg/dL (9-23) Creatinine 0.56 mg/dL (0.700-1.30) Glomerular Filtration Rate Calc 133 mL/min (>90) BUN/Creatinine Ratio 14.3 (10.0-20.0) Serum Glucose 122 mg/dL (74-106) Hemoglobin A1c 9.5 % A1C (<5.7) Calcium Level 8.9 mg/dL (8.7-10.4) Magnesium Level 1.9 mg/dL (1.6-2.6) B-Type Natriuretic Peptide 3.75 pg/mL (0-100) Triglycerides Level 150 mg/dL (< 150) Cholesterol Level 103 mg/dL (< 200) LDL Cholesterol 48 mg/dL (< 100) HDL Cholesterol 29 mg/dL (40-59) Thyroid Stimulating Hormone (TSH) 0.50 uIU/mL (0.55-4.78) Urine Color Light-yellow (Yellow) Urine Clarity Turbid (Clear) Urine pH 5.0 (5.0-9.0) Urine Specific [place] 1.048 (1.001-1.035) Urine Protein Negative (Negative) Urine Ketones Trace (Negative) Urine Blood Negative /uL (Negative) Urine Nitrite Negative (Negative) Urine Bilirubin Negative (Negative) Urine Urobilinogen Normal mg/dL (Negative) Urine Leukocyte Esterase Negative /uL (Negative) Urine RBC <1 /hpf (0 - 3) Urine WBC 1 /hpf (0 - 3) Urine Squamous Epithelial Cells Few /hpf (<5) Urine Bacteria Few /hpf (None Seen) Urine Hyaline Casts Few /lpf (0 - 2) Urine Mucus Few (None Seen) Urine Glucose 4+ mg/dL (Normal) Test 01/12/24 14:19 Troponin I High Sensitivity < 3 ng/L (</=54) Other Laboratory Tests 01/13/24 07:18 Brief Hx & Hospital Course: 33-year-old male with diabetes [id number] admitted for hyperglycemia and chest pain. Patient does not have ACS, patient had hyperglycemia because he has not been taking metformin due to diarrhea. Patient was seen by Cardiology here. Discharged on metformin XR 2 benefit from engaging lower GI symptoms, at which Jardiance, increase Lipitor to 40 mg daily. Patient to follow up with primary care for further anti hyperglycemic management as outpatient. Patient does not have UTI, dirty UA, asymptomatic, no need for antibiotic 15 minutes spent discussing regarding lifestyle, dietary and exercise changes to modify disease process and improve quality of life Condition at Discharge: Good Final Diagnosis/Problems List Hyperglycemia ACS ruled out Non cardiac chest pain likely gerd UTI ruled out Discharge Disposition: Home Discharge Instruct/Medications Diet: Consistent carbohydrate, Cardiac 2g Na,low cholest Activity: No Restrictions, As Tolerated Follow Up/Referral: Follow up with PCP Medications: metformin XR 750 daily jardiance 25mg daily c/w ozempic lipitor 40mg daily Discharge Statement: "Patient was advised to return to the ER or call 911 if any headaches, dizziness, shortness of breath, chest pain, abdominal pain, bleeding, fevers, or worsening of medical condition. Patient was counseled about treatment plan, medications, possible side effects, patientverbalized understanding. All questions were answered to the best of my ability. This discharge took greater then 30 minutes in planning, reviewing documentation, counseling the patient, and discussing with other team members." ASSESSMENT ASSESSMENT Assessment Hyperglycemia ACS ruled out Non cardiac chest pain UTI ruled out Obesity Date of Service: Jan 14, 2024 Billing Provider: DAVI MEJIA MD Common Visit Codes: 98967-IIO/OBS DISCH DAY >30min Secondary Visit Codes: [id number] COUNSELING IND DAVI MEJIA MD Jan 14, 2024 11:14
--- NOTE | 2024-01-14 12:30 | ECG ---
[facility] Test Date: 2024-01-12 Test Time: 13:03:31 Pat Name: TIBURCIO TOLLIVER Department: ER Room: [address] [place] [address] Gender: M [employer]: CAROLYNN : 1990 Requested By: MOOKIE DAN Order Number: [id number] Reading MD: Measurements Intervals Coin Rate: 96 P: 45 LA: 168 QRS: 48 QRSD: 104 T: -2 QT: 356 QTc: 450 Interpretive Statements Sinus rhythm Right atrial enlargement Low voltage, precordial leads Consider right ventricular hypertrophy Borderline T abnormalities, inferior leads ST elevation, consider lateral injury Baseline wander in lead(s) V5 Please click the below link to view image of tracing.
== END 2024-01-14 12:15 | disposition home or self-care (01) | DRG 243 ==
LOC: ER 12:57 → OVERFLOW 15:29
PROVIDERS: ADMIT Hospitalist; ATTEND Student in an Organized Health Care Education/Training Program
DX: K21.9 Gastro-esophageal reflux disease without esophagitis (principal); K90.49 Malabsorption due to intolerance, not elsewhere classified; E11.65 Type 2 diabetes mellitus with hyperglycemia; R63.0 Anorexia; E66.9 Obesity, unspecified; Z79.84 Long term (current) use of oral hypoglycemic drugs; Z79.4 Long term (current) use of insulin
CPT/HCPCS: 36415; 71045; 80048; 80061; 81001; 82962; 83036; 83735; 83880; 84443; 84484; 85025; 85379; 93005; 99291; G0378; J1815